=== PATIENT | female | born 1965 | race African-American/Black ===

== ENCOUNTER 2024-01-29 11:01 | Inpatient (IN) | payer MEDICAID ==
[~2024-01-29] VITALS: Ht 172.7 cm; Wt 51.3 kg
[2024-01-29 11:03] VITALS: O2SAT 98
[2024-01-29] MEDS: SODIUM CHLORIDE 0.9% 1,000 ML IV ONE (11:16)
[2024-01-29 11:34] LABS: BASOPHILS % 0.7 % (0.0-2.0); EOSINOPHILS % 1.4 % (0.0-5.0); HEMATOCRIT. 38.2 % (36.0-48.0); HEMOGLOBIN. 12.5 g/dL (12.0-16.0); MEAN CORPUSCULAR HEMOGLOBIN 29.6 pg (28.0-32.0); MEAN CORPUSCULAR HGB CONC 32.6 g/dL (31.0-37.0); MEAN CORPUSCULAR VOLUME 90.8 fL (81.0-99.0); MEAN PLATELET VOLUME 9.7 fl (7.4-10.4); MONOCYTES % 9.8 % (2.0-8.0); NEUTROPHILS % 62.1 % (40.0-76.0); PLATELET 317 x1000/uL (130-400); RED BLOOD CELL COUNT 4.21 mill/uL (4.2-5.4); RED CELL DISTRIBUTION WIDTH 12.6 % (11.6-14.6); WHITE BLOOD COUNT 8.1 x1000/uL (4.5-11.0)
[2024-01-29 11:46] LABS: CHLORIDE 100 mEq/L (98-107); POTASSIUM 4.1 mEq/L (3.5-5.1); SODIUM 133 mEq/L (136-145)
[2024-01-29 11:47] LABS: CALCIUM 9.2 mg/dL (8.7-10.4); CARBON DIOXIDE 22 mEq/L (21-32)
[2024-01-29 11:52] LABS: CREATININE 1.1 mg/dL (0.6-1.0); UREA NITROGEN BLOOD 15 mg/dL (9-23)
[2024-01-29 11:52] LABS: BG BASE EXCESS -5.4 mmol/L (-2.0-3.0); BG FRACTION INSPIRED OXYGEN 21; BG HCO3 ACT 19.1 mmol/L (21.0-28.0); BG METHEMOGLOBIN 0.3 % (0.5-1.5); BG OXYHEMOGLOBIN 95.7 % (94.0-98.0); BG PCO2 34.2 mmHg (32.0-45.0); BG PH 7.365 (7.350-7.450); BG PO2 97.8 mmHg (83.0-108.0); BG SAMPLE SITE RIGHT BRACHIAL; BG TOTAL HEMOGLOBIN 13.2 g/dL (12.0-16.0); BG VENT MODE ROOM AIR
[2024-01-29 11:53] LABS: ETHANOL BLOOD 65 mg/dL (<10)
[2024-01-29 12:11] LABS: GLUCOSE 651 mg/dL (70-105); TROPONIN I HIGH SENSITIVITY < 4 ng/L (3.0-34)
[2024-01-29] MEDS ORDERED: IPRATROPIUM/ALBUTEROL 0.5-3(2.5)MG/3ML NEB HHN PRN (13:30)
[2024-01-29] MEDS ORDERED: ONDANSETRON HCL 4MG/2ML INJ IV PRN (13:30)
[2024-01-29] MEDS ORDERED: ACETAMINOPHEN 325MG TABLET PO PRN (13:30)
[2024-01-29] MEDS ORDERED: CLONIDINE 0.1MG TABLET PO PRN (13:30)
[2024-01-29] MEDS ORDERED: DOCUSATE SODIUM 100MG CAPSULE PO PRN (13:30)
[2024-01-29] MEDS ORDERED: MAGNESIUM/ALUMINUM HYDROXIDE/SIMETHICONE 30ML UDC PO PRN (13:30)
[2024-01-29] MEDS ORDERED: GUAIFENESIN 200MG/10ML SUGAR FREE UDC PO PRN (13:30)
[2024-01-29 14:05] LABS: BETA HYDROXYBUTYRATE 0.4 mMol/L (0.0-0.3)
[2024-01-29] MEDS ORDERED: DEXTROSE 50% WATER 50ML SYRINGE IV PRN (14:15)
[2024-01-29] MEDS ORDERED: LORAZEPAM 2MG/ML INJ IV PRN (14:45)
[2024-01-29] MEDS: ENOXAPARIN 40MG/0.4ML SYR SUBCUT SCH (14:47)
[2024-01-29] MEDS: FOLIC ACID 1 MG, THIAMINE HCL 100 MG, MVI, ADULT NO.1 10 ML in DEXTROSE 5% WATER 1,000 ML IV ONE (16:22)
[2024-01-29] MEDS: INSULIN REGULAR (HUMULIN R) 1000UNITS/10ML VIAL IV NR (16:32)
[2024-01-29] MEDS ORDERED: INSULIN LISPRO 100 UNITS/ML SUBCUT SCH (17:15)
[2024-01-29] MEDS: SODIUM CHLORIDE 0.45% 1,000 ML IV SCH (17:23)
[2024-01-29] MEDS: FOLIC ACID 1MG TABLET PO SCH (17:23)
[2024-01-29] MEDS: BLOOD SUGAR DIAGNOSTIC STRIP TEST SCH (17:23)
[2024-01-29] MEDS: THIAMINE HCL 200 MG in SODIUM CHLORIDE 0.9% 98 ML IV SCH (17:24)
[2024-01-29] MEDS: ACETAMINOPHEN 325MG TABLET PO PRN (17:35)
[2024-01-29] MEDS: INSULIN LISPRO 100 UNITS/ML SUBCUT SCH (18:38)
[2024-01-29 19:07] LABS: CHLORIDE 104 mEq/L (98-107); POTASSIUM 3.6 mEq/L (3.5-5.1); SODIUM 139 mEq/L (136-145)
[2024-01-29 19:08] LABS: CALCIUM 9.2 mg/dL (8.7-10.4); CARBON DIOXIDE 27 mEq/L (21-32)
[2024-01-29 19:13] LABS: GLUCOSE 363 mg/dL (70-105); UREA NITROGEN BLOOD 11 mg/dL (9-23)
[2024-01-29 19:15] LABS: AMMONIA < 17 uMol/L (<32)
[2024-01-29] MEDS: CHLORDIAZEPOXIDE 25MG CAPSULE PO SCH (21:46)
[2024-01-29] MEDS: INSULIN GLARGINE 100 UNITS/ML SUBCUT SCH (21:46)
[2024-01-29 22:30] VITALS: BP 117/90; PULSE 102; RESP 18; TEMP 36.0844
[2024-01-29 23:09] VITALS: BP 117/90; PULSE 111; RESP 18; TEMP 36.00288; O2SAT 100
[2024-01-30 04:00] VITALS: BP 150/97; PULSE 76; RESP 18; TEMP 36.33624; O2SAT 99
[2024-01-30 06:44] LABS: BASOPHILS % 0.3 % (0.0-2.0); EOSINOPHILS % 2.4 % (0.0-5.0); HEMATOCRIT. 37.5 % (36.0-48.0); HEMOGLOBIN. 12.5 g/dL (12.0-16.0); LYMPHOCYTES % 28.4 % (20.0-50.0); MEAN CORPUSCULAR HEMOGLOBIN 29.8 pg (28.0-32.0); MEAN CORPUSCULAR HGB CONC 33.3 g/dL (31.0-37.0); MEAN CORPUSCULAR VOLUME 89.4 fL (81.0-99.0); MEAN PLATELET VOLUME 9.7 fl (7.4-10.4); MONOCYTES % 8.9 % (2.0-8.0); PLATELET 285 x1000/uL (130-400); RED BLOOD CELL COUNT 4.19 mill/uL (4.2-5.4); RED CELL DISTRIBUTION WIDTH 12.7 % (11.6-14.6); WHITE BLOOD COUNT 9.2 x1000/uL (4.5-11.0)
[2024-01-30 07:17] LABS: T4 FREE 1.14 ng/dL (0.89-1.76)
[2024-01-30 07:18] LABS: THYROID STIMULATING HORMONE 0.12 uIU/mL (0.55-4.78)
[2024-01-30 07:19] LABS: ALANINE AMINOTRANSFERASE 21 IU/L (10-49); LDL CHOLESTEROL 132 mg/dL (5-100); TRIGLYCERIDE 144 mg/dL (0-150)
[2024-01-30 07:20] LABS: ALBUMIN 3.6 g/dL (3.2-4.8)
[2024-01-30 07:21] LABS: ASPARTATE AMINOTRANSFERASE 23 IU/L (<34); BILIRUBIN DIRECT 0.1 mg/dL (<=3.0); BILIRUBIN TOTAL 0.5 mg/dL (0.1-1.0); CHOLESTEROL 197 mg/dL (<200); HDL CHOLESTEROL 52 mg/dL (>65); PROTEIN TOTAL 6.5 g/dL (6.0-8.3)
[2024-01-30 08:00] VITALS: BP 138/89; PULSE 103; RESP 20; TEMP 36.28068; O2SAT 100
[2024-01-30] MEDS ORDERED: THIAMINE HCL 100MG TABLET PO SCH (09:00)
[2024-01-30] MEDS: AMLODIPINE 10MG TABLET PO SCH (09:08)
[2024-01-30] MEDS: INSULIN GLARGINE 100 UNITS/ML SUBCUT SCH ×2 (09:12→21:42)
[2024-01-30 09:22] LABS: CHLORIDE 106 mEq/L (98-107); POTASSIUM 4.2 mEq/L (3.5-5.1); SODIUM 138 mEq/L (136-145)
[2024-01-30 09:23] LABS: CALCIUM 9.6 mg/dL (8.7-10.4); CARBON DIOXIDE 25 mEq/L (21-32)
[2024-01-30 09:28] LABS: CREATININE 0.8 mg/dL (0.6-1.0); GLUCOSE 231 mg/dL (70-105); UREA NITROGEN BLOOD 16 mg/dL (9-23)
[2024-01-30] MEDS: MAGNESIUM 2 G PREMIX 50 ML IV NR (11:26)
[2024-01-30] MEDS: INSULIN LISPRO 100 UNITS/ML SUBCUT SCH (11:40)
[2024-01-30 12:00] VITALS: BP 119/82; PULSE 100; RESP 20; TEMP 36.61404; O2SAT 100
[2024-01-30 16:00] VITALS: BP 105/65; PULSE 106; RESP 18; TEMP 36.55848; O2SAT 100
[2024-01-30] MEDS ORDERED: LOSA50TA41 PO (17:00)
[2024-01-30] MEDS ORDERED: AMLO10TA80 PO (17:00)
[2024-01-30] MEDS ORDERED: GABA-532 PO (17:00)
[2024-01-30] MEDS ORDERED: METF-414 PO (17:00)
[2024-01-30 20:00] VITALS: BP 124/74; PULSE 98; RESP 19; TEMP 36.22512; O2SAT 99
[2024-01-30] MEDS: ATORVASTATIN CALCIUM 40MG TABLET PO SCH (20:59)
[2024-01-30] MEDS: CHLORDIAZEPOXIDE 5 MG CAPSULE PO SCH (21:40)
[2024-01-31] VITALS: BP 109/67; PULSE 62; RESP 18; TEMP 36.22512; O2SAT 97
[2024-01-31 04:00] VITALS: BP 119/60; PULSE 57; RESP 19; TEMP 36.61404; O2SAT 98
[2024-01-31 08:00] VITALS: BP 121/79; PULSE 92; RESP 18; TEMP 36.9474; TEMP 36.94740; O2SAT 100
== END 2024-01-31 09:55 | disposition left against medical advice (07) | DRG 52 ==
LOC: ER 11:22 → 5WST 12:09 → EDBEDREQ 12:17 → EDBEDREQTM 12:17 → 7EST 22:22
PROVIDERS: ADMIT Hospitalist; ATTEND Hospitalist
DX: G92.8 Other toxic encephalopathy (principal); I69.351 Hemiplegia and hemiparesis following cerebral infarction affecting right dominant side; E11.40 Type 2 diabetes mellitus with diabetic neuropathy, unspecified; E11.65 Type 2 diabetes mellitus with hyperglycemia; E78.5 Hyperlipidemia, unspecified; E83.42 Hypomagnesemia; F10.129 Alcohol abuse with intoxication, unspecified; I10 Essential (primary) hypertension; F17.200 Nicotine dependence, unspecified, uncomplicated; Z20.822 Contact with and (suspected) exposure to COVID-19; F15.10 Other stimulant abuse, uncomplicated; Z91.148 Patient's other noncompliance with medication regimen for other reason; Z53.29 Procedure and treatment not carried out because of patient's decision for other reasons; Z79.4 Long term (current) use of insulin; Z83.3 Family history of diabetes mellitus; Z79.82 Long term (current) use of aspirin; Z82.3 Family history of stroke; Z82.49 Family history of ischemic heart disease and other diseases of the circulatory system; S00.03XA Contusion of scalp, initial encounter; X58.XXXA Exposure to other specified factors, initial encounter; Y93.89 Activity, other specified; Y92.89 Other specified places as the place of occurrence of the external cause; Y99.8 Other external cause status
CPT/HCPCS: 36415; 36600; 71045; 80048; 80061; 80076; 80320; 82010; 82040; 82140; 82375; 82805; 82962; 83036; 83735; 83880; 83930; 84100; 84439; 84443; 84484; 85025; 93005; J1650; J1815; J3411; J3475; J3490; J7030; J7050; J7070; G0480

== ENCOUNTER 2024-03-05 12:37 | Emergency (ER) | payer MEDICAID ==
[~2024-03-05] VITALS: Ht 172.7 cm; Wt 67.0 kg
[~2024-03-05 12:37] MED LIST: AMLO10TA80 PO; GABA-532 PO; LOSA50TA41 PO; METF-414 PO
[2024-03-05 12:49] VITALS: O2SAT 100
[2024-03-05 13:54] LABS: CARBON DIOXIDE 27 mEq/L (21-32); CHLORIDE 102 mEq/L (98-107); POTASSIUM 4.1 mEq/L (3.5-5.1); SODIUM 134 mEq/L (136-145)
[2024-03-05 13:55] LABS: CALCIUM 9.4 mg/dL (8.7-10.4)
[2024-03-05 14:00] LABS: CREATININE 0.8 mg/dL (0.6-1.0); GLUCOSE 351 mg/dL (70-105); UREA NITROGEN BLOOD 9 mg/dL (9-23)
[2024-03-05 14:02] LABS: BETA HYDROXYBUTYRATE 0.4 mMol/L (0.0-0.3)
[2024-03-05 14:04] LABS: BASOPHILS % 0.9 % (0.0-2.0); EOSINOPHILS % 1.1 % (0.0-5.0); HEMATOCRIT. 38.3 % (36.0-48.0); LYMPHOCYTES % 21.2 % (20.0-50.0); MEAN CORPUSCULAR HEMOGLOBIN 30.6 pg (28.0-32.0); MEAN CORPUSCULAR VOLUME 89.9 fL (81.0-99.0); MEAN PLATELET VOLUME 9.4 fl (7.4-10.4); MONOCYTES % 8.3 % (2.0-8.0); NEUTROPHILS % 68.5 % (40.0-76.0); PLATELET 345 x1000/uL (130-400); RED BLOOD CELL COUNT 4.26 mill/uL (4.2-5.4); RED CELL DISTRIBUTION WIDTH 12.8 % (11.6-14.6); WHITE BLOOD COUNT 9.7 x1000/uL (4.5-11.0)
[2024-03-05 16:43] LABS: CLARITY URINE TURBID (CLEAR); COLOR URINE YELLOW (YELLOW); GLUCOSE URINE 3+ (NEGATIVE); KETONES URINE NEGATIVE (NEGATIVE); LEUKOCYTE ESTERASE URINE 2+ (NEGATIVE); NITRITE URINE POSITIVE (NEGATIVE); OCCULT BLOOD URINE 2+ (NEGATIVE); PROTEIN URINE 1+ (NEGATIVE); SPECIFIC GRAVITY URINE 1.038 (1.005-1.030); UROBILINOGEN URINE 0.2 E.U./dL (0.2-1.0)
[2024-03-05 17:05] LABS: BACTERIA URINE 3+; SQUAMOUS EPITHELIAL CELL URINE 1+ /lpf (RARE/1+)
[2024-03-05 17:06] LABS: WBC URINE TNTC /hpf (0-2)
[2024-03-05] MEDS ORDERED: CEFP200T13 MT (17:37)
[2024-03-05] MEDS: CEFTRIAXONE 1GM/50ML 50 ML IV ONE (17:40)
[2024-03-05] MEDS: SODIUM CHLORIDE 0.9% 1,000 ML IV ONE (17:40)
[2024-03-05 18:50] VITALS: BP 121/82; PULSE 90; RESP 16; TEMP 36.39180; O2SAT 100
== END 2024-03-05 18:53 | disposition home or self-care (01) ==
LOC: ER 12:53
DX: E11.10 Type 2 diabetes mellitus with ketoacidosis without coma (principal); N39.0 Urinary tract infection, site not specified; Z79.899 Other long term (current) drug therapy
CPT/HCPCS: 99284; 96365; 80048; 81003; 82010; 85025; 87086; 87186; 36415; J0696; J7030